=== PATIENT | male | born 1990 | race Two or more races ===

== ENCOUNTER 2016-09-04 13:13 | Emergency (ER) | payer OTHER ==
[~2016-09-04] VITALS: Ht 188 cm; Wt 86.2 kg
[2016-09-04 13:37] VITALS: BP 152/89
[2016-09-04] MEDS ORDERED: IBUPROFEN 800 MG TAB PO ONE (14:30)
== END 2016-09-04 15:21 | disposition home or self-care (01) ==
LOC: ER 13:27
DX: S63.285A Dislocation of proximal interphalangeal joint of left ring finger, initial encounter (principal); W06.XXXA Fall from bed, initial encounter; Y93.89 Activity, other specified; Y99.8 Other external cause status; Y92.89 Other specified places as the place of occurrence of the external cause
CPT/HCPCS: 26770; 73130; 73140